=== PATIENT | male | born 1960 | race Two or more races ===

== ENCOUNTER 2024-05-06 11:00 | Emergency (ER) | payer BC, OTHER ==
[~2024-05-06] VITALS: Ht 167.6 cm; Wt 96.0 kg
[2024-05-06 11:27] LABS: Basophils # (auto) 0 10 ^3/uL (0-0.2); Basophils % (auto) 0.6 % (0.0-2.0); Eosinophils # (auto) 0.3 10 ^3/uL (0-0.8); Eosinophils % (auto) 6.1 % (0.0-7.0); Hematocrit 47.8 % (41.0-53.0); Hemoglobin 16.1 g/dL (13.5-17.5); Lymphocytes # (auto) 2.4 10 ^3/uL (0.4-5.4); Lymphocytes % (auto) 46.2 % (10.0-50.0); Mean Corpuscular Hgb Conc. 33.6 g/dL (32.0-36.0); Mean Corpuscular Volume 89.5 fL (80.0-100.0); Monocytes # (auto) 0.4 10 ^3/uL (0-1.3); Monocytes % (auto) 7.9 % (0.0-12.0); Neutrophils % (auto) 39.2 % (37.0-80.0); Nucleated Red Blood Cells % 0.2 %; Red Blood Cells 5.35 10^6/uL (4.5-5.90); Red Cell Distribution Width 13.2 % (11.8-14.3); White Blood Cell 5.2 10^3/uL (4.4-10.8)
[2024-05-06] MEDS: NITROGLYCERIN 0.4 MG SL TAB SL ONE (11:43)
[2024-05-06 11:50] LABS: INR 1.02 (0.9-1.15); Partial Thromboplastin Time 25.6 SEC (24.5-34.5); Prothrombin Time 10.8 sec (9.3-11.8)
[2024-05-06 11:54] VITALS: PULSE 158; RESP 20; O2SAT 99
[2024-05-06] MEDS: LABETALOL HCL 5 MG/ML 4ML SYRINGE IV ONE (12:00)
[2024-05-06 12:04] LABS: Alanine Aminotransferase 28 U/L (7-40); Albumin 4.4 g/dL (3.2-4.8); Alkaline Phosphatase 88 U/L (46-116); Anion Gap 7 (5-15); Aspartate Aminotransferase 24 U/L (13-40); BUN/Creatinine Ratio 9.8 (10.0-20.0); Bilirubin, Total 0.6 mg/dL (0.2-1.0); Blood Urea Nitrogen 11 mg/dL (9-23); Carbon Dioxide 25 mmol/L (20-30); Chloride 106 mmol/L (98-107); Glucose 326 mg/dL (74-106); Magnesium 1.6 mg/dL (1.6-2.6); Potassium 3.3 mmol/L (3.5-5.1); Sodium 138 mmol/L (136-145)
[2024-05-06 12:05] LABS: Total Protein 6.8 g/dL (5.7-8.2)
[2024-05-06 13:58] LABS: Urine Bacteria None Seen /hpf (None Seen)
[2024-05-06 14:50] LABS: Urine Blood Negative /uL (Negative); Urine Clarity Clear (Clear); Urine Color Light-Yellow (Yellow); Urine Mucus FEW (None Seen); Urine Protein, UAD TRACE (Negative); Urine Specific Gravity 1.034 (1.001-1.035); Urine Urobilinogen Normal (Negative); Urine WBC 2 /hpf (0 - 3)
[2024-05-06] MEDS: SODIUM CHLORIDE 0.9% 1,000 ML IV ONE (16:46)
[2024-05-06] MEDS: INSULIN LISPRO (HUMAN) 100 UNITS/ML ML SC ONE (16:47)
[2024-05-06] MEDS: POTASSIUM EFFERVESENT TAB 25 MEQ PO ONE (16:49)
[2024-05-06] MEDS: POTASSIUM CHL 20MEQ/100ML 100 ML IV SCH (16:54)
[2024-05-06] MEDS: MAGNESIUM SULFATE 1GM/100ML 100 ML IV ONE (17:36)
[2024-05-06 17:37] LABS: Triglycerides 53 mg/dL (< 150)
[2024-05-06 17:38] LABS: LDL Cholesterol 100 mg/dL (< 100)
[2024-05-06 17:39] LABS: Cholesterol 154 mg/dL (< 200); HDL Cholesterol 51 mg/dL (40-59)
[2024-05-06] MEDS ORDERED: METO25TA93 PO (18:00)
[2024-05-06 19:06] VITALS: BP 101/82; PULSE 87; RESP 16; O2SAT 96
[2024-05-06] MEDS ORDERED: OMEP-335 PO (19:32)
[2024-05-06] MEDS: PANTOPRAZOLE 40 MG TAB PO ONE (19:50)
[2024-05-07] MEDS ORDERED: ENOXAPARIN SOD 30 MG/0.3 ML SYRINGE SC SCH (10:00)
[2024-05-07] MEDS ORDERED: METOPROLOL SUCCINATE XL 50 MG TAB PO SCH (10:00)
== END 2024-05-06 20:17 | disposition short-term general hospital (02) ==
LOC: ER 11:00
DX: I24.9 Acute ischemic heart disease, unspecified (principal); R07.9 Chest pain, unspecified; E11.65 Type 2 diabetes mellitus with hyperglycemia; E87.6 Hypokalemia; I10 Essential (primary) hypertension; K21.9 Gastro-esophageal reflux disease without esophagitis
CPT/HCPCS: 36415; 71045; 80053; 80061; 81001; 83036; 83735; 83880; 84443; 84484; 85025; 85610; 85730; 93005; 96365; 96367; 96372; 99285; J1815; J3475; J3480; J7030

== ENCOUNTER 2024-07-22 14:13 | Inpatient (IN) | payer BC ==
[~2024-07-22] VITALS: Ht 170.2 cm; Wt 86.0 kg
[~2024-07-22 14:13] MED LIST: METO25TA93 PO; OMEP-335 PO
[2024-07-22] MEDS: SODIUM CHLORIDE 0.9% 1,000 ML IV ONE ×6 (15:10→23:31)
[2024-07-22 15:15] VITALS: PULSE 143; RESP 41; O2SAT 95
[2024-07-22] MEDS: LABETALOL HCL 20 MG/4 ML VL IV ONE (15:27)
[2024-07-22 15:56] LABS: Basophils # (auto) 0 10 ^3/uL (0-0.2); Basophils % (auto) 0.1 % (0.0-2.0); Eosinophils # (auto) 0 10 ^3/uL (0-0.8); Hematocrit 45.6 % (41.0-53.0); Hemoglobin 15.4 g/dL (13.5-17.5); Lymphocytes # (auto) 0.2 10 ^3/uL (0.4-5.4); Lymphocytes % (auto) 1.6 % (10.0-50.0); Mean Corpuscular Hemoglobin 30.8 pg (28.0-32.0); Mean Corpuscular Hgb Conc. 33.7 g/dL (32.0-36.0); Mean Corpuscular Volume 91.3 fL (80.0-100.0); Monocytes # (auto) 0.6 10 ^3/uL (0-1.3); Monocytes % (auto) 5.5 % (0.0-12.0); Neutrophils # (auto) 9.3 10 ^3/uL (1.6-8.6); Neutrophils % (auto) 92.8 % (37.0-80.0); Nucleated Red Blood Cells % 0.1 %; Platelet Count (auto) 163 10^3/uL (140-450); Red Cell Distribution Width 13.5 % (11.8-14.3); White Blood Cell 10.1 10^3/uL (4.4-10.8)
[2024-07-22] MEDS ORDERED: InsuLIN REG 1unit/0.01ml Soln (100units/ml) IV ONE ×2 (16:00→17:45)
[2024-07-22] MEDS: InsuLIN REG 1unit/0.01ml Soln (100units/ml) SC ONE (16:02)
[2024-07-22 16:18] LABS: Alanine Aminotransferase 17 U/L (7-40); Albumin 3.9 g/dL (3.2-4.8); Alkaline Phosphatase 83 U/L (46-116); Anion Gap 20.00001 (5-15); Aspartate Aminotransferase 14 U/L (13-40); Bilirubin, Total 0.4 mg/dL (0.2-1.0); Blood Urea Nitrogen 26 mg/dL (9-23); Calcium 9.1 mg/dL (8.7-10.4); Chloride 98 mmol/L (98-107); Potassium 5.1 mmol/L (3.5-5.1); Sodium 128 mmol/L (136-145); Total Protein 6.4 g/dL (5.7-8.2)
[2024-07-22 16:23] LABS: Carbon Dioxide < 10 mmol/L (20-30)
[2024-07-22 16:24] LABS: Glucose 468 mg/dL (74-106)
[2024-07-22 17:16] LABS: Urine Bacteria None Seen /hpf (None Seen)
[2024-07-22] MEDS ORDERED: POTASSIUM CHL 20MEQ/100ML 200 ML IV PRN (17:45)
[2024-07-22] MEDS: D5W/SOD CHL 0.45%/KCL 20MEQ 1,000 ML IV SCH (17:45)
[2024-07-22] MEDS ORDERED: DEXTROSE (50%) 50ML SYRG IV PRN ×2 (17:45→23:15)
[2024-07-22 17:59] LABS: Base Excess -11.6 mmol/L (-2.0-3.0)
[2024-07-22 18:05] LABS: Urine Blood 2+ /uL (Negative); Urine Clarity Clear (Clear); Urine Color Light-Yellow (Yellow); Urine Hyaline Cast MOD /lpf (0 - 2); Urine Protein, UAD 1+ (Negative); Urine Specific Gravity 1.028 (1.001-1.035); Urine Urobilinogen Normal (Negative); Urine WBC 2 /hpf (0 - 3); Urine pH 5.5 (5.0-9.0)
[2024-07-22] MEDS: ACETAMINOPHEN 500 MG TAB PO ONE (18:33)
[2024-07-22] MEDS: InsuLIN REG 1unit/0.01ml Soln (100units/ml) IV ONE (18:34)
[2024-07-22 18:38] LABS: COVID19 ANTIGEN SOFIA FIA NEGATIVE (NEGATIVE)
[2024-07-22] MEDS: INSULIN DRIP 100 UNIT/100ML 100 ML IV SCH (18:42)
[2024-07-22] MEDS: cefTRIAXone 1GM/50ML D5W 50 ML IV ONE (18:49)
[2024-07-22 19:10] VITALS: O2SAT 95
[2024-07-22] MEDS: SODIUM BICARB 8.4% 50Meq/50ml SYR Vial IV ONE (19:45)
[2024-07-22 19:49] LABS: Phosphorus 1.3 mg/dL (2.4-5.1)
[2024-07-22] MEDS: ACCU-CHEK COMFORT CURVE STRIP VI SCH (20:01)
[2024-07-22] MEDS: IOHEXOL 350 MG/ML 100ML IJ ONE (20:32)
[2024-07-22] MEDS: ADENOSINE 6 MG/2 ML INJ IV ONE ×4 (20:44→21:00)
[2024-07-22] MEDS: METOPROLOL TARTRATE 1MG/1ML-5ML VIAL IV ONE (20:45)
[2024-07-22] MEDS: D5W/SOD CHL 0.45% 1,000 ML IV ONE (21:30)
[2024-07-22] MEDS: SODIUM CHLORIDE 0.9% 1,000 ML IV SCH (21:45)
[2024-07-22 22:20] LABS: Alanine Aminotransferase 16 U/L (7-40); Albumin 3.6 g/dL (3.2-4.8); Alkaline Phosphatase 69 U/L (46-116); Anion Gap 8 (5-15); Aspartate Aminotransferase 19 U/L (13-40); BUN/Creatinine Ratio 15.8 (10.0-20.0); Bilirubin, Total 0.4 mg/dL (0.2-1.0); Blood Urea Nitrogen 19 mg/dL (9-23); Calcium 8.6 mg/dL (8.7-10.4); Carbon Dioxide 18 mmol/L (20-30); Chloride 107 mmol/L (98-107); Phosphorus 1.1 mg/dL (2.4-5.1); Potassium 3.5 mmol/L (3.5-5.1); Total Protein 5.9 g/dL (5.7-8.2)
[2024-07-22 22:42] LABS: Glucose 155 mg/dL (74-106); Sodium 133 mmol/L (136-145)
[2024-07-22] MEDS ORDERED: MORPHINE SULFATE INJ 2 MG/ml SYRG IV PRN (23:15)
[2024-07-22] MEDS ORDERED: NITROGLYCERIN 0.4 MG SL TAB SL PRN (23:15)
[2024-07-22] MEDS ORDERED: MELA3TAB27 PO (23:59)
[2024-07-23] VITALS (19 sets, daily range): BP systolic 104–156; BP diastolic 45–101; PULSE 94–126; RESP 0–35; TEMP 97.9–98.4; O2SAT 89–97
[2024-07-23] MEDS: ACCU-CHEK COMFORT CURVE STRIP VI SCH (00:07)
[2024-07-23] MEDS: InsuLIN REG 1unit/0.01ml Soln (100units/ml) SC SCH (00:13)
[2024-07-23] MEDS: dilTIAZem 25 MG/5 ML VIAL IV ONE ×2 (00:29)
[2024-07-23] MEDS: MELATONIN 5 MG TAB PO ONE (00:42)
[2024-07-23] MEDS: dilTIAZem 125mg/125ml BAG KIT 125 ML IV SCH (03:45)
[2024-07-23] MEDS ORDERED: METOPROLOL TARTRATE 1MG/1ML-5ML VIAL IV PRN (04:15)
[2024-07-23] MEDS: METOPROLOL TARTRATE 50 MG TAB PO ONE (04:23)
[2024-07-23 04:30] LABS: Basophils # (auto) 0 10 ^3/uL (0-0.2); Basophils % (auto) 0.2 % (0.0-2.0); Eosinophils # (auto) 0 10 ^3/uL (0-0.8); Hematocrit 40.9 % (41.0-53.0); Hemoglobin 14.1 g/dL (13.5-17.5); Lymphocytes # (auto) 0.4 10 ^3/uL (0.4-5.4); Mean Corpuscular Hemoglobin 30.7 pg (28.0-32.0); Mean Corpuscular Hgb Conc. 34.5 g/dL (32.0-36.0); Monocytes # (auto) 0.6 10 ^3/uL (0-1.3); Monocytes % (auto) 5.9 % (0.0-12.0); Neutrophils # (auto) 8.3 10 ^3/uL (1.6-8.6); Neutrophils % (auto) 89.9 % (37.0-80.0); Platelet Count (auto) 149 10^3/uL (140-450); Red Cell Distribution Width 13.2 % (11.8-14.3); White Blood Cell 9.3 10^3/uL (4.4-10.8)
[2024-07-23] MEDS: ACETAMINOPHEN 325 MG TAB PO ONE (04:46)
[2024-07-23 04:52] LABS: INR 1.01 (0.9-1.15); Partial Thromboplastin Time 27.7 SEC (24.5-34.5); Prothrombin Time 10.7 sec (9.3-11.8)
[2024-07-23 04:59] LABS: Alanine Aminotransferase 18 U/L (7-40); Albumin 3.6 g/dL (3.2-4.8); Alkaline Phosphatase 73 U/L (46-116); Anion Gap 8 (5-15); Aspartate Aminotransferase 24 U/L (13-40); BUN/Creatinine Ratio 14.4 (10.0-20.0); Bilirubin, Total 0.5 mg/dL (0.2-1.0); Blood Urea Nitrogen 15 mg/dL (9-23); Calcium 9.1 mg/dL (8.7-10.4); Carbon Dioxide 19 mmol/L (20-30); Chloride 105 mmol/L (98-107); Glucose 212 mg/dL (74-106); Potassium 3.6 mmol/L (3.5-5.1); Sodium 132 mmol/L (136-145); Total Protein 6.2 g/dL (5.7-8.2)
[2024-07-23] MEDS: METOPROLOL TARTRATE 50 MG TAB PO SCH (08:57)
[2024-07-23] MEDS ORDERED: guaiFENesin-DM 100/10mg/5ml SYR PO PRN (10:00)
[2024-07-23] MEDS: ALBUTEROL SULF 2.5 MG/0.5ML(0.5%) NEB SOLN NEB SCH (10:00)
[2024-07-23] MEDS: ALBUTEROL SULF 2.5 MG/0.5ML(0.5%) NEB SOLN ONE (10:25)
[2024-07-23] MEDS: DOXYCYCLINE 100MG/250ML 250 ML IV ONE (11:15)
[2024-07-23] MEDS: METOPROLOL TARTRATE 25 MG TAB PO ONE (11:29)
[2024-07-23] MEDS ORDERED: METO-289 PO (15:16)
[2024-07-23] MEDS ORDERED: HYDR-3682 PO (15:16)
[2024-07-23] MEDS ORDERED: AMLO1TAB23 PO (15:16)
[2024-07-23] MEDS: DOXYCYCLINE 100 MG TAB/CAP PO SCH (21:27)
[2024-07-23] MEDS: METOPROLOL TARTRATE 25 MG TAB PO SCH (21:35)
[2024-07-24] VITALS (24 sets, daily range): BP systolic 108–153; BP diastolic 65–104; PULSE 91–126; RESP 15–27; TEMP 97.5–99.5; O2SAT 17–100
[2024-07-24] MEDS ORDERED: LEVALBUTEROL HCL 1.25 MG/3 ML NEB NEB PRN (10:30)
[2024-07-24] MEDS ORDERED: DEXTROSE (50%) 50ML SYRG IV PRN (11:30)
[2024-07-24] MEDS: INSULIN LANTUS (GLARGINE) 1 /0.01ml (100units/ml) SC ONE (12:59)
[2024-07-24] MEDS: InsuLIN REG 1unit/0.01ml Soln (100units/ml) SC SCH (13:00)
[2024-07-24] MEDS: ACCU-CHEK COMFORT CURVE STRIP VI SCH (13:01)
[2024-07-25] MEDS ORDERED: INSULIN LANTUS (GLARGINE) 1 /0.01ml (100units/ml) SC SCH (07:00)
== END 2024-07-24 19:00 | DRG 189 ==
LOC: ER 14:13 → DOU IN ICU 23:11 → TELE 23:11 → DOU IN ICU 07-23 14:41
PROVIDERS: ADMIT Internal Medicine; ATTEND Internal Medicine
DX: J96.01 Acute respiratory failure with hypoxia (principal); E11.10 Type 2 diabetes mellitus with ketoacidosis without coma; J18.9 Pneumonia, unspecified organism; N17.9 Acute kidney failure, unspecified; I47.10 Supraventricular tachycardia, unspecified; K21.9 Gastro-esophageal reflux disease without esophagitis; Z20.822 Contact with and (suspected) exposure to COVID-19; I10 Essential (primary) hypertension
CPT/HCPCS: 36415; 71045; 71275; 80053; 81001; 82010; 82962; 83036; 83735; 84100; 84484; 85025; 85379; 85610; 85730; 87081; 87426; 93005; 93970; 94640; 97163; G0378; J0153; J1815; J3490

== ENCOUNTER 2024-08-06 19:59 | Inpatient (IN) | payer BC ==
[~2024-08-06] VITALS: Ht 170.2 cm; Wt 94.7 kg
[~2024-08-06 19:59] MED LIST changes: +AMLO1TAB23 PO; +HYDR-3682 PO; +MELA3TAB27 PO; +METO-289 PO
[2024-08-06 20:31] LABS: Basophils # (auto) 0 10 ^3/uL (0-0.2); Basophils % (auto) 0.5 % (0.0-2.0); Eosinophils # (auto) 0.1 10 ^3/uL (0-0.8); Eosinophils % (auto) 1.3 % (0.0-7.0); Hematocrit 44.3 % (41.0-53.0); Hemoglobin 14.7 g/dL (13.5-17.5); Lymphocytes # (auto) 2.5 10 ^3/uL (0.4-5.4); Lymphocytes % (auto) 37.4 % (10.0-50.0); Mean Corpuscular Hemoglobin 30.4 pg (28.0-32.0); Mean Corpuscular Hgb Conc. 33.2 g/dL (32.0-36.0); Mean Corpuscular Volume 91.5 fL (80.0-100.0); Monocytes # (auto) 0.4 10 ^3/uL (0-1.3); Monocytes % (auto) 6.2 % (0.0-12.0); Neutrophils # (auto) 3.7 10 ^3/uL (1.6-8.6); Neutrophils % (auto) 54.6 % (37.0-80.0); Nucleated Red Blood Cells % 0.2 %; Platelet Count (auto) 322 10^3/uL (140-450); Red Blood Cells 4.84 10^6/uL (4.5-5.90); Red Cell Distribution Width 13.9 % (11.8-14.3); White Blood Cell 6.7 10^3/uL (4.4-10.8)
[2024-08-06] MEDS: ADENOSINE 6 MG/2 ML INJ IV ONE ×3 (20:36→20:42)
[2024-08-06] MEDS: SODIUM CHLORIDE 0.9% 1,000 ML IV ONE (20:46)
[2024-08-06 20:48] LABS: Alanine Aminotransferase 39 U/L (7-40); Albumin 4.2 g/dL (3.2-4.8); Alkaline Phosphatase 88 U/L (46-116); Anion Gap 14 (5-15); Aspartate Aminotransferase 21 U/L (13-40); BUN/Creatinine Ratio 13.7 (10.0-20.0); Bilirubin, Total 0.5 mg/dL (0.2-1.0); Blood Urea Nitrogen 19 mg/dL (9-23); Calcium 10.3 mg/dL (8.7-10.4); Carbon Dioxide 20 mmol/L (20-30); Chloride 104 mmol/L (98-107); Glucose 342 mg/dL (74-106); Potassium 3.6 mmol/L (3.5-5.1); Sodium 138 mmol/L (136-145)
[2024-08-06] MEDS: cefTRIAXone 1GM/50ML D5W 50 ML IV ONE (22:00)
[2024-08-06 22:13] LABS: Lactic Acid w/Reflex 2.7 mmol/L (0.4-2.0)
[2024-08-06 22:21] LABS: Base Excess 0.7 mmol/L (-2.0-3.0)
[2024-08-06] MEDS ORDERED: DEXTROSE (50%) 50ML SYRG IV PRN (23:00)
[2024-08-06] MEDS: AZITHROMYCIN 500MG/ 250ML 250 ML IV ONE (23:00)
[2024-08-06] MEDS ORDERED: NITROGLYCERIN 0.4 MG SL TAB SL PRN (23:00)
[2024-08-06] MEDS ORDERED: ACETAMINOPHEN 325 MG TAB PO PRN (23:00)
[2024-08-07] MEDS: ACCU-CHEK COMFORT CURVE STRIP VI SCH
[2024-08-07] MEDS: InsuLIN REG 1unit/0.01ml Soln (100units/ml) SC SCH
[2024-08-07] MEDS: MORPHINE SULFATE INJ 2 MG/ml SYRG IV PRN (02:16)
[2024-08-07 04:08] VITALS: PULSE 98; RESP 16; O2SAT 97
[2024-08-07 04:24] LABS: Urine Bacteria None Seen /hpf (None Seen)
[2024-08-07] MEDS: HYDROcodone-ACET 5/325MG TAB PO PRN (04:33)
[2024-08-07 04:36] LABS: Urine Blood Negative /uL (Negative); Urine Clarity Clear (Clear); Urine Color Light-Yellow (Yellow); Urine Hyaline Cast FEW /lpf (0 - 2); Urine Protein, UAD Negative (Negative); Urine Specific Gravity 1.021 (1.001-1.035); Urine Urobilinogen Normal (Negative); Urine WBC 1 /hpf (0 - 3); Urine pH 5.5 (5.0-9.0)
[2024-08-07 09:28] LABS: Chloride 109 mmol/L (98-107); Potassium 3.7 mmol/L (3.5-5.1); Sodium 142 mmol/L (136-145)
[2024-08-07 09:29] LABS: Anion Gap 10 (5-15); Calcium 9.7 mg/dL (8.7-10.4); Carbon Dioxide 23 mmol/L (20-30)
[2024-08-07 09:34] LABS: BUN/Creatinine Ratio 13.2 (10.0-20.0); Blood Urea Nitrogen 14 mg/dL (9-23); Glucose 189 mg/dL (74-106)
[2024-08-07] MEDS: MAGNESIUM SULFATE 1GM/100ML 100 ML IV SCH (10:00)
[2024-08-07] MEDS: METOPROLOL SUCCINATE XL 50 MG TAB PO SCH (10:00)
[2024-08-07] MEDS: ENOXAPARIN SOD 40 MG/0.4 ML SYRINGE SC SCH (14:00)
[2024-08-07] MEDS: levoFLOXacin 500MG 100 ML IV SCH (14:00)
[2024-08-07] MEDS: OXYCODONE W/ ACETAMINOPHEN 5/325MG TABLET PO PRN (15:24)
[2024-08-07 20:00] VITALS: PULSE 81; RESP 21; O2SAT 95
[2024-08-07 21:00] VITALS: BP 141/85; PULSE 77; RESP 20; TEMP 97.9; O2SAT 96
[2024-08-07] MEDS ORDERED: OXY10CRT PO (21:17)
[2024-08-07] MEDS ORDERED: DOXY-286 PO (21:17)
[2024-08-07 21:18] VITALS: PULSE 72; RESP 18; O2SAT 96
[2024-08-07] MEDS ORDERED: OMEP20TA PO (22:18)
[2024-08-07] MEDS: MELATONIN 5 MG TAB PO ONE (22:59)
[2024-08-08] VITALS (8 sets, daily range): BP systolic 119–157; BP diastolic 76–109; PULSE 72–89; RESP 14–20; TEMP 97.6–98.1; O2SAT 95–98
[2024-08-08] MEDS: PANTOPRAZOLE 40 MG TAB PO SCH (05:38)
[2024-08-08] MEDS ORDERED: LEVO500T91 PO (08:37)
[2024-08-08] MEDS ORDERED: METO-6 PO (08:37)
[2024-08-08] MEDS: DOCUSATE SOD 100 MG CAP PO PRN (12:40)
[2024-08-08] MEDS ORDERED: MELATONIN 5 MG TAB PO ONE (22:00)
[2024-08-08] MEDS: MELATONIN 5 MG TAB PO SCH (22:09)
[2024-08-09 01:00] VITALS: BP 148/92; PULSE 71; RESP 17; TEMP 98.4; O2SAT 95
[2024-08-09 05:00] VITALS: BP 180/104; PULSE 73; RESP 16; TEMP 98.3; O2SAT 95
[2024-08-09 08:00] VITALS: PULSE 70
[2024-08-09] MEDS ORDERED: AMIO200T13 PO (08:55)
[2024-08-09 08:56] VITALS: BP 129/89; PULSE 76; RESP 14; TEMP 97.7; O2SAT 96
[2024-08-09] MEDS: METOPROLOL SUCCINATE XL 50 MG TAB PO SCH (10:13)
[2024-08-09 13:00] VITALS: BP 140/93; PULSE 69; RESP 16; TEMP 97.6; O2SAT 97
== END 2024-08-09 16:00 | disposition home health service (06) | DRG 308 ==
LOC: ER 19:59 → TELE 23:07 → TELE-E-ADS 08-07 20:58
PROVIDERS: ADMIT Internal Medicine; ATTEND Internal Medicine
DX: I47.10 Supraventricular tachycardia, unspecified (principal); J18.9 Pneumonia, unspecified organism; E87.20 Acidosis, unspecified; N17.9 Acute kidney failure, unspecified; K21.9 Gastro-esophageal reflux disease without esophagitis; F41.9 Anxiety disorder, unspecified; E11.65 Type 2 diabetes mellitus with hyperglycemia; E66.9 Obesity, unspecified; I10 Essential (primary) hypertension; G89.29 Other chronic pain; E03.9 Hypothyroidism, unspecified; Z83.3 Family history of diabetes mellitus; Z79.899 Other long term (current) drug therapy; Z68.32 Body mass index [BMI] 32.0-32.9, adult; Z79.4 Long term (current) use of insulin
CPT/HCPCS: 36415; 36600; 71045; 80048; 80053; 81001; 82805; 82947; 82962; 83605; 83735; 83880; 84436; 84443; 84481; 84484; 85025; 87040; 93005; 93306; 96374; G0378; J0153; J1815; J1956

== ENCOUNTER 2024-11-24 05:21 | Inpatient (IN) | payer BC ==
[~2024-11-24] VITALS: Ht 170.2 cm; Wt 92.3 kg
[~2024-11-24 05:21] MED LIST changes: +AMIO200T13 PO; -AMLO1TAB23 PO; -HYDR-3682 PO; +LEVO500T91 PO; -METO-289 PO; +METO-6 PO; -METO25TA93 PO; -OMEP-335 PO; +OMEP20TA PO; +OXY10CRT PO
[2024-11-24 05:40] VITALS: PULSE 100; RESP 26; O2SAT 98
--- NOTE | 2024-11-24 06:45 | ED.PDOC ---
SOB-HPI HPI Comments 64Y M with PMHx DM, HTN, GERD, COPD, and SVT presents to ED for chief complaint SOB x2hrs. Additional symptom includes chest tightness that radiates to his back. Pt states his O2 is normal, but he feels short of breath. Pt wakes up in the mornings with nausea sometimes but currently denies n/v/d. Pt says he feels better after eating when he has the nausea episodes. Pt states he was supposed to have ablation procedure done, but it never happened. Pt wad discharged from [facility] on 08/09/2024 with dx SVT. Chief Complaint: Shortness of Breath Time Seen by MD: 06:18 Reviewed notes: Nurses Notes, Medications, Allergies Information Source: Patient, Spouse Mode of Arrival: Wheelchair Severity: Moderate Timing: Hours Duration: Since onset Context: At Rest PE Risk Factors: None History of: COPD Modifying Factors: Nothing Associated Signs and Symptoms: Chest Pain Quality: Tightness Radiation: Back Past Medical History PAST MEDICAL HISTORY: COPD, DM, GERD, HTN Surgical History: Hernia Repair Family History Family History: Reviewed,noncontributory to illness Social History Smoker: Non-Smoker Alcohol: Denies ETOH Use Drugs: Denies Drug Use Lives In: Home Constitutional: denies: chills, diaphoresis, fatigue, fever, malaise, sweats, weakness, others EENTM: denies: blurred vision, double vision, ear bleeding, ear discharge, ear drainage, ear pain, ear ringing, eye pain, eye redness, hearing loss, mouth pain, mouth swelling, nasal discharge, nose bleeding, nose congestion, nose pain, photophobia, tearing, throat pain, throat swelling, voice changes, others Respiratory: reports: shortness of breath; denies: cough, hemoptysis, orthopnea, SOB at rest, SOB with excertion, stridor, wheezing, others Cardiovascular: reports: chest pain; denies: dizzy spells, diaphoresis, Dyspnea on exertion, edema, irregular heart beat, left arm pain, lightheadedness, palpitations, PND, syncope, others Gastrointestinal: reports: nausea; denies: abdomen distended, abdominal pain, blood streaked bowels, constipated, diarrhea, dysphagia, difficulty swallowing, hematemesis, melena, poor appetite, poor fluid intake, rectal bleeding, rectal pain, vomiting, others Genitourinary: denies: burning, dysuria, flank pain, frequency, hematuria, incontinence, penile discharge, penile sore, pain, testicle pain, testicle swelling, urgency, others Neurological: denies: dizziness, fainting, headache, left sided numbness, left sided weakness, numbness, paresthesia, pre-existing deficit, right sided numbness, right sided weakness, seizure, speech problems, tingling, tremors, weakness, others Musculoskeletal: reports: back pain; denies: gout, joint pain, joint swelling, muscle pain, muscle stiffness, neck pain, others Integumetry: denies: bruises, change in color, change in hair/nails, dryness, laceration, lesions, lumps, rash, wounds, others Allergic/Immunocompromised: denies: Difficulty Healing, Frequent Infections, Hives, Itching, others Hematologic/Lymphatic: denies: anemia, blood clots, easy bleeding, easy bruising, swollen glands, others Endocrine: denies: excessive hunger, excessive sweating, excessive thirst, excessive urination, flushing, intolerance to cold, intolerance to heat, unexplained weight gain, unexplained weight loss, others Psychiatric: denies: anxiety, bipolar disorder, depression, hopeless, panic disorder, schizophrenia, sleepless, suicidal, others All Other Systems: Reviewed and Negative Physical Exam General Appearance: No Apparent Distress, Normal HEENT: Normal ENT Inspection, Pharynx Normal, TMs Normal Neck: Full Range of Motion, Non-Tender, Normal, Normal Inspection Respiratory: Chest Non-Tender, Lungs Clear, No Accessory Muscle Use, Normal Breath Sounds, Other (on oxygen supplementation) Cardiovascular: No Edema, No JVD, No Murmur, No Gallop, Normal Peripheral Pu lses, Regular Rate/Rhythm Breast Exam: Deferred Gastrointestinal: No Organomegaly, Non Tender, No Pulsatile Mass, Normal Bowel Sounds, Soft Genitalia: Deferred Pelvic: Deferred Rectal: Deferred Extremities: No calf tenderness, Normal capillary refill, Normal inspection, Normal range of motion, Non-tender, No pedal edema Musculoskeletal : Apperance: Normal Neurologic: Alert, snagger II-XII nml as Tested, No Motor Deficits, Normal Affect, Normal Mood, No Sensory Deficits Cerebellar Function: NOT DONE Reflexes: NOT DONE Skin: Dry, Normal Color, Warm Lymphatic: No Adenopathy Was a procedure done? Was a procedure done?: No Differential Dx Differential Diagnosis: COPD X-Ray, Labs, Meds, VS Vital Signs Date Time Temp Pulse Resp B/P (MAP) Pulse Ox O2 Delivery O2 Flow Rate FiO2 11/24/24 08:00 86 15 115/77 (90) 93 11/24/24 08:00 82 11/24/24 06:54 88 11 97 Room Air* 0 21 11/24/24 06:53 98.8 88 11 99/77 (84) 97 98.8 11/24/24 05:54 97.5 155 24 105/44 (64) 100 11/24/24 05:40 100 26 98 Room Air* 0 21 11/24/24 05:36 150 11/24/24 05:30 97.3 153 26 99/68 (78) 98 97.3 Lab Test 11/24/24 07:24 11/24/24 05:52 Range/Units Troponin I High Sensitivity 6 4 </=54 ng/L White Blood Count 5.3 4.4-10.8 10^3/uL Red Blood Count 5.08 4.5-5.90 10^6/uL Hemoglobin 15.4 13.5-17.5 g/dL Hematocrit 46.8 41.0-53.0 % Mean Corpuscular Volume 92.2 80.0-100.0 fL Mean Corpuscular Hemoglobin 30.3 28.0-32.0 pg Mean Corpuscular Hemoglobin Concent 32.9 32.0-36.0 g/dL Red Cell Distribution Width 14.1 11.8-14.3 % Platelet Count 235 140-450 10^3/uL Mean Platelet Volume 6.7 L 6.9-10.8 fL Neutrophils (%) (Auto) 45.4 37.0-80.0 % Lymphocytes (%) (Auto) 40.2 10.0-50.0 % Monocytes (%) (Auto) 7.5 0.0-12.0 % Eosinophils (%) (Auto) 6.3 0.0-7.0 % Basophils (%) (Auto) 0.6 0.0-2.0 % Neutrophils # (Auto) 2.4 1.6-8.6 10 ^3/uL Lymphocytes # (Auto) 2.1 0.4-5.4 10 ^3/uL Monocytes # (Auto) 0.4 0-1.3 10 ^3/uL Eosinophils # (Auto) 0.3 0-0.8 10 ^3/uL Basophils # (Auto) 0 0-0.2 10 ^3/uL Nucleated Red Blood Cells 0.2 % Sodium Level 141 136-145 mmol/L Potassium Level 3.8 3.5-5.1 mmol/L Chloride Level 109 H 98-107 mmol/L Carbon Dioxide Level 22 20-31 mmol/L Anion Gap 10 5-15 Blood Urea Nitrogen 17 9-23 mg/dL Creatinine 1.13 0.700-1.30 mg/dL Glomerular Filtration Rate Calc 73 >90 mL/min BUN/Creatinine Ratio 15.0 10.0-20.0 Serum Glucose 213 H 74-106 mg/dL Calcium Level 10.8 H 8.7-10.4 mg/dL B-Type Natriuretic Peptide 32.81 0-100 pg/mL [place] [id number] Ph: [phone] DIAGNOSTIC IMAGING Diagnostic Imaging Report : [id number] Signed PATIENT: JENSEN SCHMIDT ACCT: [id number] UNIT: [id number] : 1960 LOC: ER ROOM / BED: / AGE / SEX: 64 / M ADM STATUS: REG ER SERVICE 4 ORDERING PHYSICIAN: ELZBIETA CORREA MD PROCEDURE(s): CXRP - CHEST PORTABLE REASON: sob ORDER NUMBER(s): [id number], ACCESSION NUMBER(s): [id number] CLINICAL INFORMATION: 64 years old, Male; shortness of breath. TECHNIQUE: Single AP portable chest radiograph was obtained. COMPARISON: XY CHEST PORTABLE on DOS: 08/06/24, XY CHEST PORTABLE on DOS: 07/22/24, XY CHEST PORTABLE on DOS: 05/06/24 FINDINGS: Lungs: Mild atelectasis in the lung bases. No focal consolidation. No pneumothorax or pleural effusion. Cardiac: Heart size is within normal limits. Pulmonary vasculature: Unremarkable. Mediastinum/marcia: Unremarkable. Bones: No acute osseous abnormality identified. Other: Defibrillator pads overlie the right chest and left upper abdomen. IMPRESSION: No evidence of acute disease in the chest. ATED BY: NEIL MEAD DO DICTATED DATE/TIME: 11/24/24700 SIGNED BY: NEIL MEAD DO SIGNED DATE/TIME: 11/24/24700 CC: Time of 1ST Reevaluation: 06:48 Reevaluation 1ST: Unchanged Patient Education/Counseling: Diagnosis, Treatment Family Education/Counseling: Diagnosis, Treatment Departure 1 Departure Time of Disposition: 09:05 (Patient with a worsening shortness of breath. We will admit patient for further workup) Impression: Primary Impression: Dyspnea Qualified Codes: R06.02 - Shortness of breath Additional Impression: Generalized weakness Disposition: ADMITTED INPATIENT Admit to: Med Surg Condition: Serious Critical Care Note Critical Care Time?: No Stability Stability form required: No Heart Score Heart Score: Heart Score Response (Comments) Value History N/A 0 EKG N/A 0 Age N/A 0 Risk Factors N/A 0 Troponin N/A 0 Total 0 I personally scribed for ELZBIETA CORREA MD ([facility]) on 11/24/24 at 06:45. Electronically submitted by Tracey Mendoza ([employer]). I personally scribed for ELZBIETA CORREA MD ([facility]) on 11/24/24 at 07:30. Electronically submitted by Tracey Mendoza ([employer]). ELZBIETA CORREA MD Nov 24, 2024 06:45
[2024-11-24 06:53] LABS: Anion Gap 10 (5-15); Carbon Dioxide 22 mmol/L (20-31); Potassium 3.8 mmol/L (3.5-5.1); Sodium 141 mmol/L (136-145)
[2024-11-24 06:54] VITALS: PULSE 88; RESP 11; O2SAT 97
[2024-11-24 06:59] LABS: Blood Urea Nitrogen 17 mg/dL (9-23)
--- NOTE | 2024-11-24 07:02 | ECG ---
[facility] Test Date: 2024-11-24 Test Time: 05:36:15 Pat Name: JENSEN SCHMIDT Department: ED Room: Gender: M Medical Radiation Tech: DARIN : 1960 Requested By: EMERGENCY EMERGENCY Order Number: [id number] Reading MD: Mk Martinez Measurements Intervals [place] Rate: 150 P: 0 OK: 0 QRS: -18 QRSD: 79 T: 4 QT: 301 QTc: 476 Interpretive Statements Junctional tachycardia Borderline left axis deviation Borderline prolonged QT interval Electronically Signed On 11-24-2024 8:56:49 PST by Mk Martinez Please click the below link to view image of tracing.
--- NOTE | 2024-11-24 07:04 | DVH ---
CLINICAL INFORMATION: 64 years old, Male; shortness of breath. TECHNIQUE: Single AP portable chest radiograph was obtained. COMPARISON: XY CHEST PORTABLE on DOS: 08/06/24, XY CHEST PORTABLE on DOS: 07/22/24, XY CHEST PORTABLE o n DOS: 05/06/24 FINDINGS: Lungs: Mild atelectasis in the lung bases. No focal consolidation. No pneumothorax or pleural effusio n. Cardiac: Heart size is within normal limits. Pulmonary vasculature: Unremarkable. Mediastinum/marcia: Unremarkable. Bones: No acute osseous abnormality identified. Other: Defibrillator pads overlie the right chest and left upper abdomen. IMPRESSION: No evidence of acute disease in the chest.
[2024-11-24 07:07] LABS: Basophils # (auto) 0 10 ^3/uL (0-0.2); Basophils % (auto) 0.6 % (0.0-2.0); Eosinophils # (auto) 0.3 10 ^3/uL (0-0.8); Eosinophils % (auto) 6.3 % (0.0-7.0); Hematocrit 46.8 % (41.0-53.0); Hemoglobin 15.4 g/dL (13.5-17.5); Lymphocytes # (auto) 2.1 10 ^3/uL (0.4-5.4); Lymphocytes % (auto) 40.2 % (10.0-50.0); Mean Corpuscular Hemoglobin 30.3 pg (28.0-32.0); Mean Corpuscular Hgb Conc. 32.9 g/dL (32.0-36.0); Mean Corpuscular Volume 92.2 fL (80.0-100.0); Monocytes # (auto) 0.4 10 ^3/uL (0-1.3); Monocytes % (auto) 7.5 % (0.0-12.0); Neutrophils # (auto) 2.4 10 ^3/uL (1.6-8.6); Neutrophils % (auto) 45.4 % (37.0-80.0); Nucleated Red Blood Cells % 0.2 %; Platelet Count (auto) 235 10^3/uL (140-450); Red Blood Cells 5.08 10^6/uL (4.5-5.90); Red Cell Distribution Width 14.1 % (11.8-14.3); White Blood Cell 5.3 10^3/uL (4.4-10.8)
[2024-11-24 07:08] LABS: Calcium 10.8 mg/dL (8.7-10.4); Chloride 109 mmol/L (98-107); Glucose 213 mg/dL (74-106)
[2024-11-24 08:00] VITALS: PULSE 69; RESP 20; O2SAT 97
[2024-11-24] MEDS: MORPHINE SULFATE 4 MG/ML SYR/VIAL IV ONE (09:31)
[2024-11-24] MEDS: ONDANSETRON HCL 4 MG/2 ML VIAL IV ONE (09:31)
[2024-11-24] MEDS: HYDROcodone-ACET 5/325MG TAB PO PRN ×2 (18:00→21:35)
[2024-11-24 19:30] VITALS: PULSE 74; RESP 16; O2SAT 96
--- NOTE | 2024-11-24 19:40 | DVHHP2 ---
History of Present Illness Reason for Visit: COPD with acute exacerbation History of Present Illness The patient is a 64-year-old male with past medical history of SVT, COPD, DM, GERD, and hypertension who presented to [facility] ED with complaint of shortness of breaths. Patient reports symptoms progressively get worse with chest pain, radiating to his back, increased work of breathing, getting worse that prompted this visit. Patient was seen and evaluated in the ED, laboratory data shows WBC 5.3, platelets 235, sodium 141, potassium 3.8, BUN 17, creatinine 1.13, GFR 73, glucose 213, BNP 32.81, troponin 11, blood pressure 114/48, heart rate 74, temperature 97.4 F, O2 saturation 92% on oxygen. Please see medication orders section in the computer. On my assessment, patient denied chest pain, no headache, no dizziness, no diaphoresis, currently on oxygen, no nausea, no vomiting, no fever, no chills. Patient was admitted for further evaluation and medical management. Past Medical History COPD, DM, GERD, HTN, SVT Past Surgical History Hernia Repair Family History Reviewed, noncontributory to the management of this case. Past Social History The patient lives at home, denies smoking, alcohol or illicit drugs abuse. Review of Systems Constitutional: No: Fever, Chills, Sweats, Weakness, Malaise, Other Eyes: No: Pain, Vision change, Conjunctivae inflammation, Eyelid inflammation, Other, Redness ENT: No: Ear pain, Ear discharge, Nose pain, Nose discharge, Nose congestion, Mouth pain, Mouth swelling, Throat pain, Throat swelling, Other Respiratory: Shortness of breath; No: Cough, Dry, SOB with excertion, Wheezing, Hemoptysis, Pleuritic Pain, Sputum, Wheezing, Other Cardiovascular: Chest Pain; No: Palpitations, Orthopnea, Paroxysmal Noc. Dyspnea, Edema, Lt Headedness, Other Gastrointestinal: Nausea; No: Vomiting, Abdominal Pain, Diarrhea, Constipation, Melena, Hematochezia, Other Genitourinary: No Dysuria, No Frequency, No Incontinence, No Hematuria, No Retention, No Other Musculoskeletal: back pain; No: other, neck pain, shoulder pain, arm pain, hand pain, leg pain, foot pain Skin: No: Rash, Lesions, Jaundice, Bruising, Other Neurological: No: Weakness, Numbness, Incoordination, Change in speech, Confusion, Seizures, Other Allergies: Coded Allergies: NO KNOWN ALLERGIES (Unverified , 05/06/24) Medications Current Medications Medications Dose Ordered Sig/[place] Route Start Time Stop Time Status Last Admin Dose Admin Acetaminophen/ Hydrocodone Bitart 1 tab Q6HPRN PRN PO 11/24/24 17:30 11/24/24 18:00 1 TAB Exam Vital Signs Vital Signs Date Time Temp Pulse Resp B/P (MAP) Pulse Ox O2 Delivery O2 Flow Rate FiO2 11/24/24 18:00 74 16 114/48 (70) 92 11/24/24 16:00 97.6 97.6 11/24/24 08:00 Nasal Cannula* 2 28 General Appearance: Alert, Oriented X3, Cooperative, No acute distress HEENT: Atraumatic, PERRLA, EOMI, Mucous membr. moist/pink Respiratory: Clear to auscultation, Normal air movement Cardiovascular: Regular rate, Normal S1, Normal S2, No murmurs Abdominal: Normal bowel sounds, Soft, No tenderness, No hepatospenomegaly, No masses Extremities: No clubbing, No cyanosis, No edema, Normal pulses, No tender ness/swelling Skin: No rashes, No breakdown, No significant lesion Neuro: Normal gait, Normal speech, Strength at 5/5 X4 ext, Normal tone, Sensation intact, Cranial nerves 3-12 NL, Reflexes 2+ Psych/Mental Status: Mental status NL, Mood NL Labs/Xrays Labs Test 11/24/24 09:06 11/24/24 05:52 Range/Units Troponin I High Sensitivity 11 </=54 ng/L White Blood Count 5.3 4.4-10.8 10^3/uL Red Blood Count 5.08 4.5-5.90 10^6/uL Hemoglobin 15.4 13.5-17.5 g/dL Hematocrit 46.8 41.0-53.0 % Mean Corpuscular Volume 92.2 80.0-100.0 fL Mean Corpuscular Hemoglobin 30.3 28.0-32.0 pg Mean Corpuscular Hemoglobin Concent 32.9 32.0-36.0 g/dL Red Cell Distribution Width 14.1 11.8-14.3 % Platelet Count 235 140-450 10^3/uL Mean Platelet Volume 6.7 L 6.9-10.8 fL Neutrophils (%) (Auto) 45.4 37.0-80.0 % Lymphocytes (%) (Auto) 40.2 10.0-50.0 % Monocytes (%) (Auto) 7.5 0.0-12.0 % Eosinophils (%) (Auto) 6.3 0.0-7.0 % Basophils (%) (Auto) 0.6 0.0-2.0 % Neutrophils # (Auto) 2.4 1.6-8.6 10 ^3/uL Lymphocytes # (Auto) 2.1 0.4-5.4 10 ^3/uL Monocytes # (Auto) 0.4 0-1.3 10 ^3/uL Eosinophils # (Auto) 0.3 0-0.8 10 ^3/uL Basophils # (Auto) 0 0-0.2 10 ^3/uL Nucleated Red Blood Cells 0.2 % Sodium Level 141 136-145 mmol/L Potassium Level 3.8 3.5-5.1 mmol/L Chloride Level 109 H 98-107 mmol/L Carbon Dioxide Level 22 20-31 mmol/L Anion Gap 10 5-15 Blood Urea Nitrogen 17 9-23 mg/dL Creatinine 1.13 0.700-1.30 mg/dL Glomerular Filtration Rate Calc 73 >90 mL/min BUN/Creatinine Ratio 15.0 10.0-20.0 Serum Glucose 213 H 74-106 mg/dL Calcium Level 10.8 H 8.7-10.4 mg/dL B-Type Natriuretic Peptide 32.81 0-100 pg/mL PATIENT: JENSEN SCHMIDT ACCT: [id number] UNIT: [id number] : 1960 LOC: ER ROOM / BED: / AGE / SEX: 64 / M ADM STATUS: REG ER SERVICE 0625 ORDERING PHYSICIAN: ELZBIETA CORREA MD PROCEDURE(s): CXRP - CHEST PORTABLE REASON: sob ORDER NUMBER(s): [id number], ACCESSION NUMBER(s): [id number] CLINICAL INFORMATION: 64 years old, Male; shortness of breath. TECHNIQUE: Single AP portable chest radiograph was obtained. COMPARISON: XY CHEST PORTABLE on DOS: 08/06/24, XY CHEST PORTABLE on DOS: 07/22/24, XY CHEST PORTABLE on DOS: 05/06/24 FINDINGS: Lungs: Mild atelectasis in the lung bases. No focal consolidation. No pneumothorax or pleural effusion. Cardiac: Heart size is within normal limits. Pulmonary vasculature: Unremarkable. Mediastinum/marcia: Unremarkable. Bones: No acute osseous abnormality identified. Other: Defibrillator pads overlie the right chest and left upper abdomen. IMPRESSION: No evidence of acute disease in the chest. Assessment/Plan Assessment/Plan Dyspnea Generalized weakness COPD with acute exacerbation Diabetes mellitus with hyperglycemia Plan 1. Admit to telemetry unit 2. Breathing treatment 3. Pain control management 4. Management of fluids and electrolytes 5. Consultation for pulmonology 6. Diagnostic tests chest x-ray 7. DVT prophylaxis on SCDs 8. Repeat labs CBC, CMP in a.m. 9. Continue with current medical management 10. Treatment plan discussed with patient and RN. Patient verbalized understanding. Plan discussed with: Patient, Other (RN) My Orders Orders - AYE LANGE DNP Procedure Category Date Status Time Levalbuterol Hcl PHA 11/25/24 Verified (Xopenex Medneb) 00:00 Ipratropium Medneb PHA 11/24/24 Verified (Atrovent Medneb) 19:45 Methylprednisolone PHA 11/24/24 Verified Sod Succ (Solu Medrol 22:00 Famotidine Injection PHA 11/24/24 Verified (Pepcid Injection) 22:00 Consistent DIET 11/25/24 Verified Carb(Ccho)Diabetes Breakfast Glucose Blood PHA 11/24/24 Verified (Accu-Chek Comfort 22:00 Bedtime Insulin Scale PHA 11/24/24 Verified 22:00 Moderate Insulin Ss PHA 11/25/24 Verified 07:00 Dextrose 50% Syringe PHA 11/24/24 Verified 19:45 Admit ADMIT 11/24/24 Verified 19:36 Allergies EMY 11/24/24 Verified 19:36 Code Status CODE 11/24/24 Verified 19:36 Sodium Chloride Lock PHA 11/24/24 Verified (Saline Lock Ns) 22:00 Oxygen Per Hour RT 11/24/24 Verified 19:36 Hydrocodone-Acet PHA 11/24/24 Verified 5/325mg Tab (Helen 19:45 Ondansetron Hcl PHA 11/24/24 Verified (Zofran) 19:45 Docusate Sodium PHA 11/24/24 Verified Capsule (Colace 19:45 Complete Blood Count LAB 11/25/24 Verified 04:00 Comprehensive LAB 11/25/24 Verified Metabolic Panel 04:00 Condition: Serious [facility] 11/24/24 Verified 19:36 Acetaminophen Tablet [facility] 11/24/24 Verified (Tylenol Tablet) 19:45 Bedrest With Bathroom [facility] 11/24/24 Verified Privileg 19:36 Sequential [facility] 11/24/24 Verified Compression Device Nitroglycerin [facility] 11/24/24 Verified Sublingual (Ntrostat 19:45 Morphine Sulfate [facility] 11/24/24 Verified Injection 19:45 Notify Md Of Changes [facility] 11/24/24 Verified From Base 19:36 Wagon Driver For [facility] 11/24/24 Verified 24 Hours 19:36 Emergency Dysrhythmia [facility] 11/24/24 Verified Protocol 19:36 Rhythm Strips Once [facility] 11/24/24 Verified Every Shift 19:36 Oxygen By Nasal 11/24/24 Verified Cannula 19:36 Problem List: (1) Dyspnea (2) Generalized weakness (3) COPD with acute exacerbation (4) Diabetes mellitus with hyperglycemia Date of Service: Nov 24, 2024 Billing Provider: AYE LANGE DNP Common Visit Codes: [id number] INP/OBS CARE (HIGH) AYE LANGE DNP Nov 24, 2024 19:40
[2024-11-24] MEDS ORDERED: DOCUSATE SOD 100 MG CAP PO PRN (19:45)
[2024-11-24] MEDS ORDERED: MORPHINE SULFATE INJ 2 MG/ml SYRG IV PRN (19:45)
[2024-11-24] MEDS ORDERED: ACETAMINOPHEN 325 MG TAB PO PRN (19:45)
[2024-11-24] MEDS ORDERED: DEXTROSE (50%) 50ML SYRG IV PRN (19:45)
[2024-11-24] MEDS ORDERED: NITROGLYCERIN 0.4 MG SL TAB SL PRN (19:45)
[2024-11-24] MEDS ORDERED: ONDANSETRON HCL 4 MG/2 ML VIAL IV PRN (19:45)
[2024-11-24 20:38] LABS: Urine Bacteria None Seen /hpf (None Seen)
[2024-11-24 20:43] VITALS: BP 102/75; PULSE 70; RESP 16; TEMP 97.6; O2SAT 96
[2024-11-24 20:47] LABS: Urine Blood Negative /uL (Negative); Urine Clarity Clear (Clear); Urine Color Light-Yellow (Yellow); Urine Protein, UAD Negative (Negative); Urine Squamous Epithelial Cell None Seen /hpf (<5); Urine Urobilinogen Normal (Negative); Urine WBC <1 /hpf (0 - 3); Urine pH 5.5 (5.0-9.0)
[2024-11-24] MEDS: SODIUM CHLOR 0.9% PF (SALINE LOCK) 10ML VIAL/SYR IV SCH (21:35)
[2024-11-24] MEDS: methylPREDNISolone SOD SUCC 40 MG/ML VL IV SCH (21:35)
[2024-11-24] MEDS: FAMOTIDINE (10MG/ML) 2ML VL IV SCH (21:35)
[2024-11-24] MEDS: InsuLIN REG 1unit/0.01ml Soln (100units/ml) SC SCH (21:47)
[2024-11-24] MEDS: ACCU-CHEK COMFORT CURVE STRIP VI SCH (21:47)
[2024-11-24 23:20] VITALS: BP 125/61; PULSE 81; RESP 18; TEMP 97.5; O2SAT 96
[2024-11-25] VITALS (14 sets, daily range): BP systolic 122–142; BP diastolic 61–96; PULSE 66–99; RESP 14–100; TEMP 97.5–98.8; O2SAT 18–98
[2024-11-25] MEDS: IPRATROPIUM BROM 0.5 MG/2.5ML INH SOL NEB PRN (00:33)
[2024-11-25] MEDS: LEVALBUTEROL HCL 1.25 MG/3 ML NEB NEB SCH (00:34)
[2024-11-25] MEDS: InsuLIN REG 1unit/0.01ml Soln (100units/ml) SC SCH (06:12)
[2024-11-25 06:33] LABS: Basophils # (auto) 0 10 ^3/uL (0-0.2); Basophils % (auto) 0.5 % (0.0-2.0); Eosinophils # (auto) 0 10 ^3/uL (0-0.8); Hematocrit 43.4 % (41.0-53.0); Hemoglobin 14.6 g/dL (13.5-17.5); Lymphocytes # (auto) 0.7 10 ^3/uL (0.4-5.4); Lymphocytes % (auto) 14.3 % (10.0-50.0); Mean Corpuscular Hemoglobin 30.8 pg (28.0-32.0); Mean Corpuscular Hgb Conc. 33.6 g/dL (32.0-36.0); Mean Corpuscular Volume 91.7 fL (80.0-100.0); Monocytes # (auto) 0.1 10 ^3/uL (0-1.3); Monocytes % (auto) 1.3 % (0.0-12.0); Neutrophils # (auto) 4.1 10 ^3/uL (1.6-8.6); Neutrophils % (auto) 83.9 % (37.0-80.0); Nucleated Red Blood Cells % 0.1 %; Platelet Count (auto) 232 10^3/uL (140-450); Red Blood Cells 4.73 10^6/uL (4.5-5.90); Red Cell Distribution Width 13.5 % (11.8-14.3); White Blood Cell 4.9 10^3/uL (4.4-10.8)
[2024-11-25 06:59] LABS: Alanine Aminotransferase 35 U/L (7-40); Alkaline Phosphatase 67 U/L (46-116); Anion Gap 6 (5-15); Aspartate Aminotransferase 13 U/L (13-40); Blood Urea Nitrogen 16 mg/dL (9-23); Calcium 10.4 mg/dL (8.7-10.4); Carbon Dioxide 26 mmol/L (20-31); Potassium 4.2 mmol/L (3.5-5.1); Sodium 140 mmol/L (136-145)
[2024-11-25 07:00] LABS: Albumin 4.4 g/dL (3.2-4.8); Total Protein 6.7 g/dL (5.7-8.2)
[2024-11-25 07:02] LABS: Chloride 108 mmol/L (98-107); Glucose 258 mg/dL (74-106)
[2024-11-25 07:37] LABS: Bilirubin, Total 0.8 mg/dL (0.2-1.0)
[2024-11-25] MEDS: MORPHINE SULFATE 4 MG/ML SYR/VIAL IV PRN (12:11)
[2024-11-25] MEDS: AZITHROMYCIN 500MG/ 250ML 250 ML IV ONE (14:31)
[2024-11-25] MEDS ORDERED: PRED20TA2 PO (17:28)
[2024-11-25] MEDS ORDERED: LEVO750T40 PO (17:28)
[2024-11-25] MEDS ORDERED: FAMO20TA10 PO (17:28)
--- NOTE | 2024-11-25 17:34 | DVHDS2 ---
Discharge Summary Date of Admission Nov 24, 2024 at 19:36 Date of Discharge: Nov 25, 2024 Labs/Diagnostic Data: Laboratory Results Test 11/25/24 16:26 11/25/24 06:12 11/24/24 20:36 11/24/24 09:06 White Blood Count 4.9 10^3/uL (4.4-10.8) Red Blood Count 4.73 10^6/uL (4.5-5.90) Hemoglobin 14.6 g/dL (13.5-17.5) Hematocrit 43.4 % (41.0-53.0) Mean Corpuscular Volume 91.7 fL (80.0-100.0) Mean Corpuscular Hemoglobin 30.8 pg (28.0-32.0) Mean Corpuscular Hemoglobin Concent 33.6 g/dL (32.0-36.0) Red Cell Distribution Width 13.5 % (11.8-14.3) Platelet Count 232 10^3/uL (140-450) Mean Platelet Volume 6.3 fL (6.9-10.8) Neutrophils (%) (Auto) 83.9 % (37.0-80.0) Lymphocytes (%) (Auto) 14.3 % (10.0-50.0) Monocytes (%) (Auto) 1.3 % (0.0-12.0) Eosinophils (%) (Auto) 0.0 % (0.0-7.0) Basophils (%) (Auto) 0.5 % (0.0-2.0) Neutrophils # (Auto) 4.1 10 ^3/uL (1.6-8.6) Lymphocytes # (Auto) 0.7 10 ^3/uL (0.4-5.4) Monocytes # (Auto) 0.1 10 ^3/uL (0-1.3) Eosinophils # (Auto) 0 10 ^3/uL (0-0.8) Basophils # (Auto) 0 10 ^3/uL (0-0.2) Nucleated Red Blood Cells 0.1 % Sodium Level 140 mmol/L (136-145) Potassium Level 4.2 mmol/L (3.5-5.1) Chloride Level 108 mmol/L (98-107) Carbon Dioxide Level 26 mmol/L (20-31) Anion Gap 6 (5-15) Blood Urea Nitrogen 16 mg/dL (9-23) Creatinine 1.14 mg/dL (0.700-1.30) Glomerular Filtration Rate Calc 72 mL/min (>90) BUN/Creatinine Ratio 14.0 (10.0-20.0) Serum Glucose 258 mg/dL (74-106) Calcium Level 10.4 mg/dL (8.7-10.4) Total Bilirubin 0.8 mg/dL (0.2-1.0) Aspartate Amino Transferase (AST) 13 U/L (13-40) Alanine Aminotransferase (ALT) 35 U/L (7-40) Alkaline Phosphatase 67 U/L (46-116) Total Protein 6.7 g/dL (5.7-8.2) Albumin 4.4 g/dL (3.2-4.8) Urine Color Light-yellow (Yellow) Urine Clarity Clear (Clear) Urine pH 5.5 (5.0-9.0) Urine Specific [place] 1.020 (1.001-1.035) Urine Protein Negative (Negative) Urine Ketones Negative (Negative) Urine Blood Negative /uL (Negative) Urine Nitrite Negative (Negative) Urine Bilirubin Negative (Negative) Urine Urobilinogen Normal mg/dL (Negative) Urine Leukocyte Esterase Negative /uL (Negative) Urine RBC 1 /hpf (0 - 3) Urine WBC <1 /hpf (0 - 3) Urine Squamous Epithelial Cells None seen /hpf (<5) Urine Bacteria None seen /hpf (None Seen) Urine Glucose Normal mg/dL (Normal) Troponin I High Sensitivity 11 ng/L (</=54) Test 11/24/24 05:52 B-Type Natriuretic Peptide 32.81 pg/mL (0-100) Other Laboratory Tests 11/25/24 06:12 Brief Hx & Hospital Course: 64-year-old male with past medical history of SVT, COPD, DM, GERD, and hypertension who presented to [facility] ED with complaint of shortness of breaths. Patient reports symptoms progressively get worse with chest pain, radiating to his back, increased work of breathing, getting worse that prompted this visit. Troponins negative, EKG unremarkable. ACS ruled out. On having patient is wheezing, chest x-ray dilated, increased cough. Concern for COPD exacerbation. Started on antibiotics, steroids, nebulizers. Patient feels better with interventions. Also has hypoxic respiratory failure which resolves with treatment. Fluid COVID negative. Inciting event could be bacterial versus viral pneumonia for this exacerbation. Vital signs stable patient stable for discharge with plan below. Diagnosis: copd exacerbation with pneumonitis; pneumonia, CAP g+/g-/atypical likely; acute hypoxic respiratory failure, resolved; ACS ruled-out; DM with hyperglycemia; chest like, likely GERD and/or pneumonia; Discharge plan: - take levaquin 750mg daily for x5 days. Also take prednisone 40mg (2 tabs) daily for x5 days. - GERD reflux might be causing chest pain. take pepcid 20mg 2x/day for x30 days. avoid caffiene, spice, late night meals. - f/u with PCP to control diabetes. f/u with PCP to review discharge. - continue other home medications that are not mentioned above. Visitation and planning required 35 minutes Condition at Discharge: Fair Final Diagnosis/Problems List copd exacerbation with pneumonitis; pneumonia, CAP g+/g-/atypical likely; acute hypoxic respiratory failure, resolved; ACS ruled-out; DM with hyperglycemia; chest like, likely GERD and/or pneumonia; Discharge Disposition: Home Discharge Instruct/Medications Diet: Consistent carbohydrate Activity: No Restrictions, As Tolerated Follow Up/Referral: PCP Medications: as below Discharge Statement: "Patient was advised to return to the ER or call 911 if any headaches, dizziness, shortness of breath, chest pain, abdominal pain, bleeding, fevers, or worsening of medical condition. Patient was counseled about treatment plan, medications, possible side effects, patientverbalized understanding. All questions were answered to the best of my ability. This discharge took greater then 30 minutes in planning, reviewing documentation, counseling the patient, and discussing with other team members." ASSESSMENT ASSESSMENT Assessment copd exacerbation with pneumonitis; pneumonia, CAP g+/g-/atypical likely; acute hypoxic respiratory failure, resolved; ACS ruled-out; DM with hyperglycemia; chest like, likely GERD and/or pneumonia; Date of Service: Nov 25, 2024 Billing Provider: AARON MARINA MD Common Visit Codes: 17903-JSG/OBS DISCH DAY >30min AARON MARINA MD Nov 25, 2024 17:34
[2024-11-25 17:56] LABS: COVID19 ANTIGEN SOFIA FIA NEGATIVE (NEGATIVE); Rapid Influenza A Negative (Negative); Rapid Influenza B Negative (Negative)
[2024-11-26] MEDS ORDERED: AZITHROMYCIN 500MG/ 250ML 250 ML IV SCH (10:00)
== END 2024-11-25 18:17 | disposition home or self-care (01) | DRG 177 ==
LOC: ER 05:21 → TELE 19:36 → TELE-WESTW 23:20
PROVIDERS: ADMIT Nurse Practitioner Family; ATTEND Student in an Organized Health Care Education/Training Program
DX: J15.69 Pneumonia due to other Gram-negative bacteria (principal); J96.01 Acute respiratory failure with hypoxia; J44.1 Chronic obstructive pulmonary disease with (acute) exacerbation; J44.0 Chronic obstructive pulmonary disease with (acute) lower respiratory infection; Z20.822 Contact with and (suspected) exposure to COVID-19; K21.9 Gastro-esophageal reflux disease without esophagitis; J15.9 Unspecified bacterial pneumonia; E11.65 Type 2 diabetes mellitus with hyperglycemia; I10 Essential (primary) hypertension; J98.4 Other disorders of lung
CPT/HCPCS: 36415; 71045; 80048; 80053; 81001; 82962; 83880; 84484; 85025; 87426; 87804; 93005; 94640; 96374; 96375; G0378; J1815; J2405; J3490

== ENCOUNTER 2025-03-11 16:03 | Inpatient (IN) | payer BC ==
[~2025-03-11] VITALS: Ht 170.2 cm; Wt 95.5 kg
[~2025-03-11 16:03] MED LIST changes: +FAMO20TA10 PO; +LEVO750T40 PO; +PRED20TA2 PO
--- NOTE | 2025-03-11 16:21 | ECG ---
[facility] Test Date: 2025-03-11 Test Time: 16:19:56 Pat Name: JENSEN SCHMIDT Department: ER Room: Gender: M Perianesthesia Rn: ISRA : 1960 Requested By: DEJA VENTURA Order Number: [id number] Reading MD: Measurements Intervals [place] Rate: 85 P: 43 W[place]: 178 QRS: 2 QRSD: 86 T: -8 QT: 355 QTc: 422 Interpretive Statements Sinus rhythm Probable left atrial enlargement Abnormal R-wave progression, late transition Borderline T wave abnormalities Minimal ST elevation, lateral leads Please click the below link to view image of tracing.
--- NOTE | 2025-03-11 16:26 | ED.PDOC ---
SOB-HPI HPI Comments 64 y/o M, with PMHx of COPD, DM, and SVT presents to the ED for CC of shortness of breath, palpitations. Patient states, he has been experiencing shortness of breath with associated symptoms of cough and nasal congestion x3days. Patient relays, increased difficulty when sleeping at night felling as if he were to stop breathing with orthopnea. No other symptoms or modifying factors present at this time. Chief Complaint: Shortness of Breath Time Seen by MD: 16:24 Primary Care Provider: ABRIL Mode of Arrival: Ambulatory Past Medical History PAST MEDICAL HISTORY: COPD, DM, GERD, HTN Surgical History: Hernia Repair Family History Family History: Reviewed,noncontributory to illness Social History Smoker: Non-Smoker Alcohol: Denies ETOH Use Drugs: Denies Drug Use Lives In: Home Constitutional: denies: chills, diaphoresis, fatigue, fever, malaise, sweats, weakness, others EENTM: reports: nose congestion; denies: blurred vision, double vision, ear bleeding, ear discharge, ear drainage, ear pain, ear ringing, eye pain, eye redness, hearing loss, mouth pain, mouth swelling, nasal discharge, nose bleeding, nose pain, photophobia, tearing, throat pain, throat swelling, voice changes, others Respiratory: reports: cough, orthopnea, shortness of breath; denies: hemoptysis, SOB at rest, SOB with excertion, stridor, wheezing, others Cardiovascular: denies: chest pain, dizzy spells, diaphoresis, Dyspnea on e xertion, edema, irregular heart beat, left arm pain, lightheadedness, palpitations, PND, syncope, others Gastrointestinal: denies: abdomen distended, abdominal pain, blood streaked bowels, constipated, diarrhea, dysphagia, difficulty swallowing, hematemesis, melena, nausea, poor appetite, poor fluid intake, rectal bleeding, rectal pain, vomiting, others Genitourinary: denies: burning, dysuria, flank pain, frequency, hematuria, incontinence, penile discharge, penile sore, pain, testicle pain, testicle swelling, urgency, others Neurological: denies: dizziness, fainting, headache, left sided numbness, left sided weakness, numbness, paresthesia, pre-existing deficit, right sided numbness, right sided weakness, seizure, speech problems, tingling, tremors, weakness, others Musculoskeletal: denies: back pain, gout, joint pain, joint swelling, muscle pain, muscle stiffness, neck pain, others Integumetry: denies: bruises, change in color, change in hair/nails, dryness, laceration, lesions, lumps, rash, wounds, others Allergic/Immunocompromised: denies: Difficulty Healing, Frequent Infections, Hives, Itching, others Hematologic/Lymphatic: denies: anemia, blood clots, easy bleeding, easy bruising, swollen glands, others Endocrine: denies: excessive hunger, excessive sweating, excessive thirst, excessive urination, flushing, intolerance to cold, intolerance to heat, unexplained weight gain, unexplained weight loss, others Psychiatric: denies: anxiety, bipolar disorder, depression, hopeless, panic disorder, schizophrenia, sleepless, suicidal, others All Other Systems: Reviewed and Negative Physical Exam General Appearance: No Apparent Distress, Normal HEENT: Normal ENT Inspection, Pharynx Normal, TMs Normal Neck: Full Range of Motion, Non-Tender, Normal, Normal Inspection Respiratory: Chest Non-Tender, Lungs Clear, No Accessory Muscle Use, No Respiratory Distress, Normal Breath Sounds Cardiovascular: No Edema, No JVD, No Murmur, No Gallop, Normal Peripheral Pulses, Regular Rate/Rhythm Breast Exam: Deferred Gastrointestinal: No Organomegaly, Non Tender, No Pulsatile Mass, Normal Bowel Sounds, Soft Genitalia: Deferred Pelvic: Deferred Rectal: Deferred Extremities: No calf tenderness, Normal capillary refill, Normal inspection, Normal range of motion, Non-tender, No pedal edema Musculoskeletal : Apperance: Normal Neurologic: Alert, head operator II-XII nml as Tested, No Motor Deficits, Normal Affect, Normal Mood, No Sensory Deficits Cerebellar Function: Normal Reflexes: Normal Skin: Dry, Normal Color, Warm Lymphatic: No Adenopathy EKG EKG : Pulse Rate (adult): 85 [place]: Normal Cardiac Rhythm: NSR Block: None Hypertrophy: None ST: Nonsp Was a procedure done? Was a procedure done?: No Differential Dx Differential Diagnosis: Anxiety, Asthma, Bronchitis, CHF, COPD, Myocardial infarction, Pneumonia, Respiratory Distress, Sinusitis, Pharyngitis, URI X-Ray, Labs, Meds, VS Vital Signs Date Time Temp Pulse Resp B/P (MAP) Pulse Ox O2 Delivery O2 Flow Rate FiO2 03/11/25 17:03 83 18 95 Room Air 03/11/25 17:03 98.5 83 18 141/93 (109) 95 98.5 03/11/25 16:20 18 97 Room Air* 0 21 03/11/25 16:19 85 03/11/25 16:05 97.8 94 18 130/81 (97) 97 97.8 Lab Test 03/11/25 16:40 Range/Units White Blood Count 4.4 4.4-10.8 10^3/uL Red Blood Count 5.21 4.5-5.90 10^6/uL Hemoglobin 15.9 13.5-17.5 g/dL Hematocrit 46.6 41.0-53.0 % Mean Corpuscular Volume 89.5 80.0-100.0 fL Mean Corpuscular Hemoglobin 30.5 28.0-32.0 pg Mean Corpuscular Hemoglobin Concent 34.1 32.0-36.0 g/dL Red Cell Distribution Width 13.4 11.8-14.3 % Platelet Count 237 140-450 10^3/uL Mean Platelet Volume 6.5 L 6.9-10.8 fL Neutrophils (%) (Auto) 45.3 37.0-80.0 % Lymphocytes (%) (Auto) 39.5 10.0-50.0 % Monocytes (%) (Auto) 10.4 0.0-12.0 % Eosinophils (%) (Auto) 4.1 0.0-7.0 % Basophils (%) (Auto) 0.7 0.0-2.0 % Neutrophils # (Auto) 2.0 1.6-8.6 10 ^3/uL Lymphocytes # (Auto) 1.8 0.4-5.4 10 ^3/uL Monocytes # (Auto) 0.5 0-1.3 10 ^3/uL Eosinophils # (Auto) 0.2 0-0.8 10 ^3/uL Basophils # (Auto) 0 0-0.2 10 ^3/uL Nucleated Red Blood Cells 0.1 % Sodium Level 143 136-145 mmol/L Potassium Level 3.9 3.5-5.1 mmol/L Chloride Level 110 H 98-107 mmol/L Carbon Dioxide Level 24 20-31 mmol/L Anion Gap 9 5-15 Blood Urea Nitrogen 17 9-23 mg/dL Creatinine 1.23 0.700-1.30 mg/dL Glomerular Filtration Rate Calc 66 >90 mL/min BUN/Creatinine Ratio 13.8 10.0-20.0 Serum Glucose 135 H 74-106 mg/dL Calcium Level 10.8 H 8.7-10.4 mg/dL Troponin I High Sensitivity 3 L </=54 ng/L B-Type Natriuretic Peptide 9.32 0-100 pg/mL Current Medications Medications (Trade) Dose Ordered Sig/[place]oma Route Start Time Stop Time Status Last Admin Aspirin 325 mg ONCE ONCE PO 03/11/25 16:30 03/11/25 16:31 DC 03/11/25 17:02 [place] [address] Ph: [phone] DIAGNOSTIC IMAGING Diagnostic Imaging Report : [id number] Signed PATIENT: JENSEN SCHMIDT ACCT: [id number] UNIT: [id number] : 1960 LOC: ER ROOM / BED: / AGE / SEX: 64 / M ADM STATUS: REG ER SERVICE 1618 ORDERING PHYSICIAN: DEJA VENTURA MD PROCEDURE(s): CXRP - CHEST PORTABLE REASON: sob ORDER NUMBER(s): [id number], ACCESSION NUMBER(s): [id number] XY CHEST PORTABLE, HISTORY: sob COMPARISON: XY CHEST PORTABLE on DOS: 11/24/24, XY CHEST PORTABLE on DOS: 08/06/24, XY CHEST PORTABLE on DOS: 07/22/24 XY CHEST PORTABLE on DOS: 11/24/24, XY CHEST PORTABLE on DOS: 08/06/24, XY CHEST PORTABLE on DOS: 07/22/24 TECHNICAL DATA: 1 view of the chest was obtained. FINDINGS: Lines and tubes: None Cardiomediastinal silhouette: normal Pulmonary vasculature: normal Lung expansion: normal Lung airspace: normal Lung interstitium: normal Pleura: normal Pneumothorax: no Bones: Unremarkable Other: no IMPRESSION: No acute intrathoracic abnormality. ATED BY: XAVIER MILES MD DICTATED DATE/TIME: 03/11/251658 SIGNED BY: XAVIER MILES MD SIGNED DATE/TIME: 04/19/25 1659 CC: Time of 1ST Reevaluation: 16:54 Reevaluation 1ST: Unchanged Patient Education/Counseling: Diagnosis, Treatment, Prognosis, Need For Follow Up Family Education/Counseling: No Family Present Comments The following charts were reviewed from patient's prior visits: DX: COPD W/ EXACERBATION, 08/06/24 DX:SVT, 07/22/24 DX:DKA The following tests were ordered, and results were reviewed by me: LABS, CXR, EKG X2 Additional Information was gathered from interviewing the following independent historians: EMS I reviewed and agreed with the following test results read by other providers: CXR I discussed treatment and results with medical personnel and: Patient and Comprehensive systems review obtained and negative except for what is stated in the HPI. pt has a strong cardiac history. he states that he has an arrhythmia which an ablation was recommended, but pt was reluctant. now he would like to consider it. he has orthopnea, sob, and palpitations. although there are no evidence of a MT, and we have not captured any arrhythmia here, with his history, i will have him admitted to monitor for his rhythm and have cardiology consulted Departure 1 Departure Time of Disposition: 17:43 Impression: Primary Impression: Palpitation Additional Impression: Orthopnea Disposition: ADMITTED INPATIENT Admit to: Tele Condition: Stable Discharged With: Self, Spouse Critical Care Note Critical Care Time?: Yes (55 min-critical care time only) Critical care comment: Due to concerns for patients condition deteriorating, the care required my highest level of attention and readiness to intervene. I assessed the patient, reviewed the medical records, ordered the appropriate tests and treatments, then reassessed for results and responsiveness. I communicated with medical personnel and consultants and formulated a plan of care. Total critical care time excludes any procedures Stability Stability form required: No Heart Score Heart Score: Heart Score Response (Comments) Value History N/A 0 EKG N/A 0 Age N/A 0 Risk Factors N/A 0 Troponin N/A 0 Total 0 I personally scribed for DEJA VENTURA MD ([email or web address]) on 03/11/25 at 16:26. Electronically submitted by Violet Sotelo ([email or web address]). I personally scribed for DEJA VENTURA MD ([email or web address]) on 03/11/25 at 17:08. Electronically submitted by Violet Sotelo ([email or web address]). I personally scribed for DEJA VENTURA MD ([facility] on 03/11/25 at 17:09. Electronically submitted by Violet Sotelo ([email or web address]). DEJA VENTURA MD Mar 11, 2025 16:26
--- NOTE | 2025-03-11 17:01 | DVH ---
XY CHEST PORTABLE, HISTORY: sob COMPARISON: XY CHEST PORTABLE on DOS: 11/24/24, XY CHEST PORTABLE on DOS: 08/06/24, XY CHEST PORTABLE on DOS: 07/22/24 XY CHEST PORTABLE on DOS: 11/24/24, XY CHEST PORTABLE on DOS: 08/06/24, XY CHEST PORTABLE on DOS: 4 TECHNICAL DATA: 1 view of the chest was obtained. FINDINGS: Lines and tubes: None Cardiomediastinal silhouette: normal Pulmonary vasculature: normal Lung expansion: normal Lung airspace: normal Lung interstitium: normal Pleura: normal Pneumothorax: no Bones: Unremarkable Other: no IMPRESSION: No acute intrathoracic abnormality.
[2025-03-11] MEDS: ASPirin 325 MG TAB PO ONE (17:02)
[2025-03-11 17:08] LABS: Basophils # (auto) 0 10 ^3/uL (0-0.2); Basophils % (auto) 0.7 % (0.0-2.0); Eosinophils # (auto) 0.2 10 ^3/uL (0-0.8); Eosinophils % (auto) 4.1 % (0.0-7.0); Hematocrit 46.6 % (41.0-53.0); Hemoglobin 15.9 g/dL (13.5-17.5); Lymphocytes # (auto) 1.8 10 ^3/uL (0.4-5.4); Lymphocytes % (auto) 39.5 % (10.0-50.0); Mean Corpuscular Hemoglobin 30.5 pg (28.0-32.0); Mean Corpuscular Hgb Conc. 34.1 g/dL (32.0-36.0); Mean Corpuscular Volume 89.5 fL (80.0-100.0); Monocytes # (auto) 0.5 10 ^3/uL (0-1.3); Monocytes % (auto) 10.4 % (0.0-12.0); Neutrophils % (auto) 45.3 % (37.0-80.0); Nucleated Red Blood Cells % 0.1 %; Platelet Count (auto) 237 10^3/uL (140-450); Red Blood Cells 5.21 10^6/uL (4.5-5.90); Red Cell Distribution Width 13.4 % (11.8-14.3); White Blood Cell 4.4 10^3/uL (4.4-10.8)
[2025-03-11 17:16] LABS: Potassium 3.9 mmol/L (3.5-5.1); Sodium 143 mmol/L (136-145)
[2025-03-11 17:17] LABS: Anion Gap 9 (5-15); Carbon Dioxide 24 mmol/L (20-31)
[2025-03-11 17:23] LABS: BUN/Creatinine Ratio 13.8 (10.0-20.0); Blood Urea Nitrogen 17 mg/dL (9-23)
[2025-03-11 17:24] LABS: Calcium 10.8 mg/dL (8.7-10.4); Chloride 110 mmol/L (98-107); Glucose 135 mg/dL (74-106)
[2025-03-11] MEDS ORDERED: ACETAMINOPHEN 325 MG TAB PO PRN (19:30)
[2025-03-11] MEDS ORDERED: IPRATROPIUM BROM 0.5 MG/2.5ML INH SOL NEB PRN (19:30)
[2025-03-11] MEDS ORDERED: ALBUTEROL SULF 2.5 MG/0.5ML(0.5%) NEB SOLN NEB PRN (19:30)
[2025-03-11] MEDS ORDERED: DEXTROSE (50%) 50ML SYRG IV PRN (19:30)
[2025-03-11] MEDS ORDERED: ONDANSETRON HCL 4 MG/2 ML VIAL IV PRN (19:30)
[2025-03-11 20:16] VITALS: TEMP 98.3
[2025-03-11 20:17] VITALS: PULSE 80
--- NOTE | 2025-03-11 20:49 | DVHHP2 ---
History of Present Illness Reason for Visit: Shortness for breath History of Present Illness 64-year-old male presents for evaluation of shortness for breath. Patient endorses a three day history of shortness for breath with mild exertion. Reports symptoms become worse when laying flat. He also reports occasional palpitations. Denies fever or chills. He reports occasional chest pressure as well. Past Medical History Hypertension, diabetes mellitus, Past Surgical History Hernia repair Family History Noncontributory Smoke: No ALCOHOL: none Drugs: None Lives: with Family Review of Systems Review of Systems Review of systems are currently negative otherwise addressed in HPI. Allergies: Coded Allergies: NO KNOWN ALLERGIES (Unverified , 05/06/24) Medications Current Medications Medications Dose Ordered Sig/[place] Route Start Time Stop Time Status Last Admin Dose Admin Albuterol 2.5 mg Q6HPRN PRN NEB 03/11/25 19:30 Ipratropium [place] 0.5 mg Q6HPRN PRN NEB 03/11/25 19:30 Metoprolol Succinate 50 mg DAILY PO 03/12/25 10:00 Amlodipine Besylate 5 mg DAILY PO 03/12/25 10:00 Diagnostic Test (Pha) 1 strip ACHS 03/11/25 22:00 Insulin Human Regular ACHS SC 03/11/25 22:00 Dextrose 50 ml UD PRN IV 03/11/25 19:30 Ondansetron HCl 4 mg Q4HP PRN IV 03/11/25 19:30 Acetaminophen 650 mg Q6HP PRN PO 03/11/25 19:30 Exam Vital Signs Vital Signs Date Time Temp Pulse Resp B/P (MAP) Pulse Ox O2 Delivery O2 Flow Rate FiO2 03/11/25 20:17 80 03/11/25 20:16 98.3 16 137/101 (113) 95 98.3 03/11/25 17:03 Room Air 03/11/25 16:20 0 21 Exam Gen: 64-year-old male in no apparent distress. Skin: Warm, dry, normal color and texture, no rash. HEENT: Normocephalic atraumatic, mucous membranes moist and pink. Neck: Cervical and supraclavicular nodes normal without enlargement, trachea is midline, thyroid gland is normal without masses. Pulmonary: Clear to auscultation and percussion bilaterally. Cardiac: Regular rate and rhythm. No murmur Abdomen: Soft, nontender, nondistended, bowel sounds present all 4 quadrants, no guarding, no rigidity, no organomegaly. Extremities: No cyanosis, clubbing, no edema Neuro: Cranial nerves II through XII grossly intact, normal affect and speech, no focal motor deficits. Labs/Xrays ORDERING PHYSICIAN: DEJA VENTURA MD PROCEDURE(s): CXRP - CHEST PORTABLE REASON: sob ORDER NUMBER(s): [id number], ACCESSION NUMBER(s): [id number] XY CHEST PORTABLE, HISTORY: sob COMPARISON: XY CHEST PORTABLE on DOS: 11/24/24, XY CHEST PORTABLE on DOS: 08/06/24, XY CHEST PORTABLE on DOS: 07/22/24 XY CHEST PORTABLE on DOS: 11/24/24, XY CHEST PORTABLE on DOS: 08/06/24, XY CHEST PORTABLE on DOS: 07/22/24 TECHNICAL DATA: 1 view of the chest was obtained. FINDINGS: Lines and tubes: None Cardiomediastinal silhouette: normal Pulmonary vasculature: normal Lung expansion: normal Lung airspace: normal Lung interstitium: normal Pleura: normal Pneumothorax: no Bones: Unremarkable Other: no IMPRESSION: No acute intrathoracic abnormality. Labs Test 03/11/25 19:22 03/11/25 16:40 Range/Units Troponin I High Sensitivity 3 L </=54 ng/L White Blood Count 4.4 4.4-10.8 10^3/uL Red Blood Count 5.21 4.5-5.90 10^6/uL Hemoglobin 15.9 13.5-17.5 g/dL Hematocrit 46.6 41.0-53.0 % Mean Corpuscular Volume 89.5 80.0-100.0 fL Mean Corpuscular Hemoglobin 30.5 28.0-32.0 pg Mean Corpuscular Hemoglobin Concent 34.1 32.0-36.0 g/dL Red Cell Distribution Width 13.4 11.8-14.3 % Platelet Count 237 140-450 10^3/uL Mean Platelet Volume 6.5 L 6.9-10.8 fL Neutrophils (%) (Auto) 45.3 37.0-80.0 % Lymphocytes (%) (Auto) 39.5 10.0-50.0 % Monocytes (%) (Auto) 10.4 0.0-12.0 % Eosinophils (%) (Auto) 4.1 0.0-7.0 % Basophils (%) (Auto) 0.7 0.0-2.0 % Neutrophils # (Auto) 2.0 1.6-8.6 10 ^3/uL Lymphocytes # (Auto) 1.8 0.4-5.4 10 ^3/uL Monocytes # (Auto) 0.5 0-1.3 10 ^3/uL Eosinophils # (Auto) 0.2 0-0.8 10 ^3/uL Basophils # (Auto) 0 0-0.2 10 ^3/uL Nucleated Red Blood Cells 0.1 % D-Dimer, Quantitative < 0.19 0.0-0.49 mg/L FEU Sodium Level 143 136-145 mmol/L Potassium Level 3.9 3.5-5.1 mmol/L Chloride Level 110 H 98-107 mmol/L Carbon Dioxide Level 24 20-31 mmol/L Anion Gap 9 5-15 Blood Urea Nitrogen 17 9-23 mg/dL Creatinine 1.23 0.700-1.30 mg/dL Glomerular Filtration Rate Calc 66 >90 mL/min BUN/Creatinine Ratio 13.8 10.0-20.0 Serum Glucose 135 H 74-106 mg/dL Calcium Level 10.8 H 8.7-10.4 mg/dL B-Type Natriuretic Peptide 9.32 0-100 pg/mL Assessment/Plan Assessment/Plan Assessment Acute respiratory distress Diabetes mellitus Plan Admit the patient to Med surge to the hospitalist Resume home medications Med nebs Pulmonary consultation D-dimer pending Continue treatment per orders. Plan discussed with: Patient My Orders Orders - ELLIS CONCEPCION AGACNP Procedure Category Date Status Time Albuterol Medneb PHA 03/11/25 In Process (Ventolin Medneb) 19:30 Ipratropium Medneb PHA 03/11/25 In Process (Atrovent Medneb) 19:30 Metoprolol Xl PHA 03/12/25 In Process Succinate (Toprol Xl) 10:00 Amlodipine Tablet PHA 03/12/25 In Process (Norvasc Tablet) 10:00 Basic Metabolic Panel LAB 03/12/25 Verified 04:00 Glucose Blood PHA 03/11/25 In Process (Accu-Chek Comfort 22:00 Insulin R (Human) PHA 03/11/25 In Process (Insulin R) 22:00 Dextrose 50% Syringe PHA 03/11/25 In Process 19:30 Admit ADMIT 03/11/25 Transmitted 19:27 Ondansetron Hcl PHA 03/11/25 In Process (Zofran) 19:30 Cardiac DIET 03/12/25 Transmitted Diet-2gna,Lofat,Lochol Breakfast Condition: Stable EMY 03/11/25 In Process 19:27 Acetaminophen Tablet PHA 03/11/25 In Process (Tylenol Tablet) 19:30 Bedrest With Bathroom EMY 03/11/25 In Process Privileg 19:27 Date of Service: Mar 11, 2025 Billing Provider: ELLIS CONCEPCION Common Visit Codes: [id number] INP/OBS CARE (HIGH) ELLIS CONCEPCION Mar 11, 2025 20:49
[2025-03-11 21:07] VITALS: BP 137/101; PULSE 80; RESP 18; O2SAT 95
[2025-03-11] MEDS ORDERED: InsuLIN REG 1unit/0.01ml Soln (100units/ml) SC SCH (22:00)
[2025-03-11] MEDS ORDERED: ACCU-CHEK COMFORT CURVE STRIP VI SCH (22:00)
[2025-03-12] MEDS ORDERED: METOPROLOL SUCCINATE XL 50 MG TAB PO SCH (10:00)
[2025-03-12] MEDS ORDERED: amLODIPine BESYLATE 5 MG TAB PO SCH (10:00)
== END 2025-03-11 21:35 | disposition left against medical advice (07) | DRG 204 ==
LOC: ER 16:03 → OVERFLOW 19:27
PROVIDERS: ADMIT Nurse Practitioner; ATTEND Nurse Practitioner
DX: R06.03 Acute respiratory distress (principal); J44.9 Chronic obstructive pulmonary disease, unspecified; I10 Essential (primary) hypertension; E11.9 Type 2 diabetes mellitus without complications; K21.9 Gastro-esophageal reflux disease without esophagitis; Z53.29 Procedure and treatment not carried out because of patient's decision for other reasons
CPT/HCPCS: 36415; 71045; 80048; 83880; 84484; 85025; 85379; 93005; 99291; G0378